=== PATIENT | male | born 1945 | race Caucasian/White ===

== ENCOUNTER 2018-09-29 09:38 | Inpatient (IN) | payer OTHER ==
[2018-09-29 11:03] VITALS: BMI 25.0
--- NOTE | 2018-09-29 12:05 | HP ---
CIWA Score Nausea/Vomitin-Mild Nausea/No Vomiting Muscle Tremors: 3 Anxiety: 2 Agitation: 1-Slight > Activity Paroxysmal Sweats: 2 Orientation: 0-Oriented Tacttile Disturbances: 0-None Auditory Disturbances: 2-Mild Harshness/Frighten Visual Disturbances: 1-Very Mild Sensitivity Headache: 1-Very Mild CIWA-Ar Total Score: 13 - Admission Criteria OASAS Guidelines: Admission for Medically Managed Detox: Requires at least one of the followin. CIWA greater than 12 2. Seizures within the past 24 hours 3. Delirium tremens within the past 24 hours 4. Hallucinations within the past 24 hours 5. Acute intervention needed for co occurring medical disorder 6. Acute intervention needed for co occurring psychiatric disorder 7. Severe withdrawal that cannot be handled at a lower level of care (continued vomiting, continued diarrhea, abnormal vital signs) requiring intravenous medication and/or fluids 8. Patient presents the following: CIWA greater than 12 Admission Criteria Met: Admission criteria met Admission ROS BHS - HPI Chief Complaint: HE DECIDED AT 73 HES GOING TO STOP EVERYTHING Allergies/Adverse Reactions: Allergies Allergy/AdvReac Type Severity Reaction Status Date / Time No Known Allergies Allergy Verified 09/29/18 09:51 History of Present Illness: AGE 22 BEGAN USING SUBSTANCES IN 1968 STARTED USING WHEN HE WAS SELLING DRUGS ONLY SIGNIFICANT PERIODS OF ABSTINENCXE WERE INCARCERATION-LAST 2011 ON MMTP SINCE 1990, NOT HEROIN ABSTINENET TURNED 73 YESTERDAY AND HAS DECIDED HE WANTS A CHANGE - Ebola screening Have you traveled outside of the country in the last 21 days: No Have you had contact with anyone from an Ebola affected area: No Do you have a fever: No - Review of Systems Constitutional: Changes in sleep, Unintentional Wgt. Loss EENT: reports: Dental Problems Respiratory: reports: No Symptoms reported Cardiac: reports: No Symptoms Reported GI: reports: Other : reports: No Symptoms Reported Musculoskeletal: reports: Joint Pain, Muscle Weakness Integumentary: reports: No Symptoms Reported Neuro: reports: Tremors Endocrine: reports: No Symptoms Reported Hematology: reports: No Symptoms Reported Psychiatric: reports: Anxious Patient History - Patient Medical History Hx Anemia: No Hx Asthma: No Hx Chronic Obstructive Pulmonary Disease (COPD): No Hx Cancer: No Hx Cardiac Disorders: No Hx Congestive Heart Failure: No Hx Hypertension: Yes Hx Hypercholesterolemia: Yes Hx Pacemaker: No HX Cerebrovascular Accident: No Hx Seizures: No Hx Dementia: No Hx Diabetes: Yes Hx Gastrointestinal Disorders: No Hx Liver Disease: No Hx Genitourinary Disorders: No Hx Sexually Transmitted Disorders: No Hx Renal Disease (ESRD): No Hx Thyroid Disease: No Hx Human Immunodeficiency Virus (HIV): No Hx Hepatitis C: No Hx Depression: No Hx Suicide Attempt: No Hx Bipolar Disorder: No Hx Schizophrenia: No - Patient Surgical History Hx Orthopedic Surgery: Yes (KNEES, FINGER AMPUTATION) - PPD History Previous Implant?: Yes Documented Results: Positive w/o proof Implanted On Prior [facility] Admission?: No - Smoking Cessation Smoking history: Current every day smoker Aproximately how many cigarettes per day: 10 Initiated information on smoking cessation: Yes 'Breaking Loose' booklet given: 09/29/18 - Substance & Tx. History Hx Alcohol Use: Yes Hx Substance Use: Yes Substance Use Type: Alcohol, Cocaine, Heroin - Substances abused Alcohol Substance route: Oral Frequency: Daily Amount used: 6- 10 beers daily/2-3 shots of rum Age of first use: 16 Date of last use: 09/28/18 Heroin Substance route: Inhalation Frequency: Daily Amount used: 4-5 bags Age of first use: 22 Date of last use: 09/28/18 Cocaine Substance route: Inhalation Frequency: Daily Amount used: $20-30 Age of first use: 22 Date of last use: 09/28/18 Family Disease History - Family Disease History Family Disease History: Other: Father (ETOH) Admission Physical Exam BHS - Vital Signs Vital Signs: Vital Signs - 24 hr 09/29/18 09:49 Temperature 97.4 F L Pulse Rate 54 L Respiratory 18 Rate Blood Pressure 131/72 - Physical General Appearance: Yes: No Apparent Distress, Anxious HEENTM: Yes: EOMI Respiratory: Yes: Within Normal Limits, Lungs Clear Neck: Yes: Within Normal Limits Breast: Yes: Breast Exam Deferred Cardiology: Yes: Regular Rhythm, Regular Rate, S1, S2 Abdominal: Yes: Normal Bowel Sounds, Non Tender Genitourinary: Yes: Within Normal Limits Back: Yes: Normal Inspection Musculoskeletal: Yes: full range of Motion, Gait Steady, Joint Stiffness Extremities: Yes: Other (SCAR RIGHT KNEE) 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, Motor Strength 5/5, Normal Mood/Affect Integumentary: Yes: Within Normal Limits, Normal Color Lymphatic: Yes: Within Normal Limits - Diagnostic (1) Opiate dependence Current Visit: Yes Status: Acute (2) Encounter for long-term methadone use for opiate dependence Current Visit: Yes Status: Acute (3) Alcohol dependence Current Visit: Yes Status: Acute (4) Cocaine abuse Current Visit: Yes Status: Acute (5) Hyperlipidemia Current Visit: Yes Status: Acute (6) Diabetes Current Visit: Yes Status: Acute (7) Hypertension Current Visit: Yes Status: Acute Cleared for Admission S - Detox or Rehab [facility] Level of Care: Medically Supervised Breathalyzer - Breathalyzer Breathalyzer: 0 Urine Drug Screen - Test Device Lot number: [id number] Expiration date: 06/15/19 - Control Is test valid?: Yes - Results Drug screen NEGATIVE: No Urine drug screen results: THC-Marijuana, SORAYA-Cocaine, MOP-Opiates, MTD- Methadone Inpatient Rehab Admission - Rehab Decision to Admit Inpatient rehab admission?: No
[2018-09-29] MEDS ORDERED: MENTHOL/PHENOL 1 EACH UD MM PRN (12:14)
[2018-09-29] MEDS ORDERED: hydrOXYzine PAMOATE 25 MG CAPSULE (FP) PO PRN (12:14)
[2018-09-29] MEDS ORDERED: MELATONIN 5 MG TABLETS PO PRN (12:14)
[2018-09-29] MEDS ORDERED: IBUPROFEN 400 MG TABLET (FP) PO PRN (12:14)
[2018-09-29] MEDS ORDERED: BISMUTH SUBSALICYLATE 262 MG/15 ML BTL PO PRN (12:14)
[2018-09-29] MEDS ORDERED: MAG HYDROX/AL HYDROX/SIMETH 30 ML UNIT-DOSE CUP PO PRN (12:14)
[2018-09-29] MEDS ORDERED: ACETAMINOPHEN 325 MG TABLET (FP) PO PRN ×2 (12:14)
[2018-09-29] MEDS ORDERED: chlordiazePOXIDE HCL 25 MG CAPSULE PO PRN (12:14)
[2018-09-29] MEDS ORDERED: MAGNESIUM CITRATE 300 ML BOTTLE PO PRN (12:14)
[2018-09-29] MEDS ORDERED: METHOCARBAMOL 500 MG TABLET PO PRN (12:14)
[2018-09-29] MEDS ORDERED: MAGNESIUM HYDROX 2400MG/30ML ORAL SUSPENSION 30 ML CUP PO PRN (12:14)
[2018-09-29] MEDS ORDERED: METHADONE HCL 10 MG TABLET PO SCH (13:00)
[2018-09-29] MEDS ORDERED: METHADONE HCL 10 MG TABLET ONE (13:47)
[2018-09-29] MEDS ORDERED: METHADONE HCL 40 MG DISPERSABLE TABLET ONE (13:47)
[2018-09-29] MEDS: ASPIRIN 81 MG CHEWABLE TABLETS PO SCH (13:51)
[2018-09-29] MEDS: amLODIPine BESYLATE 10 MG TABLET (FP) PO SCH (13:51)
[2018-09-29] MEDS: GABAPENTIN 300 MG CAPSULE (FP) PO SCH ×2 (13:51→22:19)
[2018-09-29] MEDS ORDERED: METHADONE 40 MG, METHADONE 30 MG PO ONE (14:00)
[2018-09-29] MEDS: chlordiazePOXIDE HCL 25 MG CAPSULE PO SCH ×2 (18:48→22:18)
[2018-09-29] MEDS: THIAMINE HCL 100 MG TABLET (FP) PO SCH (22:18)
[2018-09-30] MEDS ORDERED: METHADONE HCL 10 MG TABLET ONE (04:55)
[2018-09-30] MEDS ORDERED: METHADONE HCL 40 MG DISPERSABLE TABLET ONE (04:56)
[2018-09-30] MEDS: METHADONE 40 MG, METHADONE 30 MG PO SCH (07:01)
[2018-09-30] MEDS: chlordiazePOXIDE HCL 25 MG CAPSULE PO SCH ×4 (07:02→22:38)
[2018-09-30] MEDS: GABAPENTIN 300 MG CAPSULE (FP) PO SCH ×3 (07:02→22:38)
--- NOTE | 2018-09-30 09:25 | PN ---
S CIWA - CIWA Score Nausea/Vomitin-Int. Nausea w/Dry Heave Muscle Tremors: 1-None Visible, but [place] Anxiety: 1-Mildly Anxious Agitation: 1-Slight > Activity Paroxysmal Sweats: No Perspiration Orientation: 0-Oriented Tacttile Disturbances: 0-None Auditory Disturbances: 0-None Visual Disturbances: 0-None Headache: 1-Very Mild CIWA-Ar Total Score: 8 BHS Progress Note (SOAP) Subjective: Patient seen in bed and relatively comfortable though he still has some tremors and some withdrawal symptoms. Objective: 09/30/18 09:21 Laboratory 09/29/18 09/29/18 09/30/18 12:55 16:32 06:05 POC Glucometer 207 UNITS UNITS 158 UNITS UNITS 134 UNITS UNITS (80-120) (80-120) (80-120) 09/30/18 09:22 Vitals: BP: 132/71 P:65 R: 18 T:97.9F Labs still pending. 09/30/18 09:23 Assessment: 09/30/18 09:24 1. Alcohol Dependence: Plan: 1. Continue detox protocol. Dr. Islas
[2018-09-30 10:53] LABS: ALBUMIN 3.4 g/dl (3.4-5.0); BILIRUBIN,TOTAL 0.4 mg/dL (0.2-1); BLOOD UREA NITROGEN 14.9 mg/dL (7-18); CALCIUM 8.8 mg/dL (8.5-10.1); CREATININE 1.2 mg/dL (0.55-1.3); POTASSIUM 4.5 mmol/L (3.5-5.1); TOT PROT 7.1 g/dl (6.4-8.2)
[2018-09-30 10:55] LABS: HEMATOCRIT 39.3 % (35.4-49); HEMOGLOBIN 13.3 GM/dL (11.7-16.9); MCH 30.5 pg (25.7-33.7); MCHC 33.9 g/dl (32.0-35.9); MEAN PLT VOLUME 9.2 fl (7.5-11.1); PLATELET COUNT 210 K/MM3 (134-434); RBC 4.37 M/mm3 (4.00-5.60); RDW 14.5 % (11.9-15.9); WHITE BLOOD COUNT 6.5 K/mm3 (4.0-10.0)
[2018-09-30] MEDS: PRENATAL VITAMINS W/ FOLIC ACID TABLET (FP) PO SCH (11:05)
[2018-09-30] MEDS: amLODIPine BESYLATE 10 MG TABLET (FP) PO SCH (11:05)
[2018-09-30] MEDS: ASPIRIN 81 MG CHEWABLE TABLETS PO SCH (11:09)
--- NOTE | 2018-09-30 11:30 | EKG ---
Test Reason : Blood Pressure : / mmHG Vent. Rate : 047 BPM Atrial Rate : 047 BPM P-R Int : 182 ms QRS Dur : 092 ms QT Int : 532 ms P-R-T Axes : 063 -12 036 degrees QTc Int : 470 ms SINUS BRADYCARDIA INCOMPLETE RBBB NO PREVIOUS ECGS AVAILABLE Confirmed by LILIA FLOR MD ([id number]) on 09/30/2018 11:30:10 AM Referred By: Confirmed By:LILIA FLOR MD
[2018-09-30] MEDS: THIAMINE HCL 100 MG TABLET (FP) PO SCH (22:38)
[2018-10-01] MEDS ORDERED: METHADONE HCL 40 MG DISPERSABLE TABLET ONE (05:03)
[2018-10-01] MEDS ORDERED: METHADONE HCL 10 MG TABLET ONE (05:03)
[2018-10-01] MEDS: chlordiazePOXIDE HCL 25 MG CAPSULE PO SCH ×4 (05:41→22:32)
[2018-10-01] MEDS: METHADONE 40 MG, METHADONE 30 MG PO SCH (05:41)
[2018-10-01] MEDS: GABAPENTIN 300 MG CAPSULE (FP) PO SCH ×3 (05:42→22:32)
[2018-10-01] MEDS: ASPIRIN 81 MG CHEWABLE TABLETS PO SCH (10:51)
[2018-10-01] MEDS: PRENATAL VITAMINS W/ FOLIC ACID TABLET (FP) PO SCH (10:51)
[2018-10-01] MEDS: amLODIPine BESYLATE 10 MG TABLET (FP) PO SCH (10:52)
--- NOTE | 2018-10-01 10:54 | PN ---
S CIWA - CIWA Score Nausea/Vomitin-No Nausea/No Vomiting Muscle Tremors: None Anxiety: 3 Agitation: 0-Normal Activity Paroxysmal Sweats: 3 Orientation: 0-Oriented Tacttile Disturbances: 0-None Auditory Disturbances: 0-None Visual Disturbances: 0-None Headache: 2-Mild CIWA-Ar Total Score: 8 BHS Progress Note (SOAP) Subjective: c/o b/l knee pain, sweats, anxiety, and headache. Objective: 10/01/18 10:52 Vital Signs 10/01/18 10/01/18 10/01/18 03:30 06:41 09:29 Temperature 96.6 F L 98.0 F Pulse Rate 54 L 54 L Respiratory 18 18 16 Rate Blood Pressure 133/68 131/76 Lab Results WBC 6.5 K/mm3 (4.0-10.0) 09/30/18 06:00 RBC 4.37 M/mm3 (4.00-5.60) 09/30/18 06:00 Hgb 13.3 GM/dL (11.7-16.9) 09/30/18 06:00 Hct 39.3 % (35.4-49) 09/30/18 06:00 MCV 90.0 fl (80-96) 09/30/18 06:00 MCHC 33.9 g/dl (32.0-35.9) 09/30/18 06:00 RDW 14.5 % (11.9-15.9) 09/30/18 06:00 Plt Count 210 K/MM3 (134-434) 09/30/18 06:00 Sodium 138 mmol/L (136-145) 09/30/18 06:00 Potassium 4.5 mmol/L (3.5-5.1) 09/30/18 06:00 Chloride 102 mmol/L (98-107) 09/30/18 06:00 Carbon Dioxide 32 mmol/L (21-32) 09/30/18 06:00 Anion Gap 4 MMOL/L (8-16) L 09/30/18 06:00 BUN 14.9 mg/dL (7-18) 09/30/18 06:00 Creatinine 1.2 mg/dL (0.55-1.3) 09/30/18 06:00 Random Glucose 183 mg/dL (74-106) H 09/30/18 06:00 Calcium 8.8 mg/dL (8.5-10.1) 09/30/18 06:00 Labs noted. Assessment: 10/01/18 10:52 AOX3, in no acute distress. Full ROM, ambulating in the unit. Withdrawal symptoms. Plan: continue detox.
[2018-10-01] MEDS: THIAMINE HCL 100 MG TABLET (FP) PO SCH (22:32)
[2018-10-02] MEDS ORDERED: chlordiazePOXIDE HCL 10 MG CAPSULE PO PRN
[2018-10-02] MEDS ORDERED: METHADONE HCL 10 MG TABLET ONE (05:16)
[2018-10-02] MEDS ORDERED: METHADONE HCL 40 MG DISPERSABLE TABLET ONE (05:16)
[2018-10-02] MEDS: METHADONE 40 MG, METHADONE 30 MG PO SCH (07:01)
[2018-10-02] MEDS: chlordiazePOXIDE HCL 10 MG CAPSULE PO SCH ×4 (07:02→22:32)
[2018-10-02] MEDS: GABAPENTIN 300 MG CAPSULE (FP) PO SCH ×3 (07:03→22:32)
[2018-10-02] MEDS: ASPIRIN 81 MG CHEWABLE TABLETS PO SCH (10:54)
[2018-10-02] MEDS: PRENATAL VITAMINS W/ FOLIC ACID TABLET (FP) PO SCH (10:54)
[2018-10-02] MEDS: amLODIPine BESYLATE 10 MG TABLET (FP) PO SCH (10:54)
[2018-10-02] MEDS ORDERED: LIDOCAINE 5% TOPICAL PATCH TP ONE (12:21)
--- NOTE | 2018-10-02 12:24 | PN ---
S CIWA - CIWA Score Nausea/Vomitin-No Nausea/No Vomiting Muscle Tremors: 2 Anxiety: 2 Agitation: 2 Paroxysmal Sweats: 2 Orientation: 0-Oriented Tacttile Disturbances: 0-None Auditory Disturbances: 0-None Visual Disturbances: 0-None Headache: 0-None Present CIWA-Ar Total Score: 8 BHS Progress Note (SOAP) Subjective: tired sleepy knee pain Objective: 10/02/18 12:23 Vital Signs Temperature 98.2 F 10/02/18 09:42 Pulse Rate 70 10/02/18 09:42 Respiratory Rate 18 10/02/18 09:42 Blood Pressure 129/64 10/02/18 09:42 O2 Sat by Pulse Oximetry (%) Laboratory Tests 09/29/18 09/29/18 09/30/18 12:55 16:32 06:00 WBC 6.5 RBC 4.37 Hgb 13.3 Hct 39.3 MCV 90.0 MCH 30.5 MCHC 33.9 RDW 14.5 Plt Count 210 MPV 9.2 Sodium Potassium Chloride Carbon Dioxide Anion Gap BUN Creatinine Est GFR (CKD-EPI)AfAm Est GFR (CKD-EPI)NonAf POC Glucometer 207 158 Random Glucose Calcium Total Bilirubin AST ALT Alkaline Phosphatase Total Protein Albumin RPR Titer 09/30/18 09/30/18 09/30/18 06:00 06:00 06:05 WBC RBC Hgb Hct MCV MCH MCHC RDW Plt Count MPV Sodium 138 Potassium 4.5 Chloride 102 Carbon Dioxide 32 Anion Gap 4 L BUN 14.9 Creatinine 1.2 Est GFR (CKD-EPI)AfAm 68.15 Est GFR (CKD-EPI)NonAf 58.80 POC Glucometer 134 Random Glucose 183 H Calcium 8.8 Total Bilirubin 0.4 AST 20 ALT 18 Alkaline Phosphatase 118 H Total Protein 7.1 Albumin 3.4 RPR Titer Nonreactive 09/30/18 10/01/18 10/01/18 17:00 05:47 16:45 WBC RBC Hgb Hct MCV MCH MCHC RDW Plt Count MPV Sodium Potassium Chloride Carbon Dioxide Anion Gap BUN Creatinine Est GFR (CKD-EPI)AfAm Est GFR (CKD-EPI)NonAf POC Glucometer 192 174 237 Random Glucose Calcium Total Bilirubin AST ALT Alkaline Phosphatase Total Protein Albumin RPR Titer 10/02/18 07:00 WBC RBC Hgb Hct MCV MCH MCHC RDW Plt Count MPV Sodium Potassium Chloride Carbon Dioxide Anion Gap BUN Creatinine Est GFR (CKD-EPI)AfAm Est GFR (CKD-EPI)NonAf POC Glucometer 299 Random Glucose Calcium Total Bilirubin AST ALT Alkaline Phosphatase Total Protein Albumin RPR Titer labs noted aaox3 lying down no acute distress Assessment: 10/02/18 12:24 withdrawal sx Plan: continue detox increase fluids lidocaine patch ordered
--- NOTE | 2018-10-02 19:21 | PN ---
S Progress Note Note: bgm is 326,will change diet to slick,ncs,bgm monitoring achs with novolog sliding scale,d/c ensure,glucerna 1 can po bid, close monitoring
[2018-10-02] MEDS: THIAMINE HCL 100 MG TABLET (FP) PO SCH (22:26)
[2018-10-02] MEDS: LIDOCAINE PATCH REMOVAL MC SCH (22:37)
[2018-10-02] MEDS: INSULIN SLIDING SCALE (NOVOLOG) 1 VIAL SQ SCH ×2 (22:38→23:30)
[2018-10-03] MEDS ORDERED: METHADONE HCL 40 MG DISPERSABLE TABLET ONE (04:18)
[2018-10-03] MEDS ORDERED: METHADONE HCL 10 MG TABLET ONE (04:18)
[2018-10-03] MEDS: METHADONE 40 MG, METHADONE 30 MG PO SCH (06:06)
[2018-10-03] MEDS: chlordiazePOXIDE HCL 10 MG CAPSULE PO SCH ×2 (06:07→18:32)
[2018-10-03] MEDS: GABAPENTIN 300 MG CAPSULE (FP) PO SCH ×3 (06:07→22:41)
[2018-10-03] MEDS: INSULIN SLIDING SCALE (NOVOLOG) 1 VIAL SQ SCH ×4 (08:03→22:41)
[2018-10-03] MEDS: ASPIRIN 81 MG CHEWABLE TABLETS PO SCH (11:03)
[2018-10-03] MEDS: PRENATAL VITAMINS W/ FOLIC ACID TABLET (FP) PO SCH (11:03)
[2018-10-03] MEDS: amLODIPine BESYLATE 10 MG TABLET (FP) PO SCH (11:03)
[2018-10-03] MEDS: LIDOCAINE 5% TOPICAL PATCH TP SCH (11:05)
[2018-10-03] MEDS ORDERED: INSULIN SLIDING SCALE (NOVOLOG) 1 VIAL SQ ONE (11:42)
--- NOTE | 2018-10-03 16:11 | PN ---
S CIWA - CIWA Score Nausea/Vomitin-No Nausea/No Vomiting Muscle Tremors: None Anxiety: 3 Agitation: 2 Paroxysmal Sweats: No Perspiration Orientation: 2-Disoriented Date<2 days Tacttile Disturbances: 0-None Auditory Disturbances: 0-None Visual Disturbances: 0-None Headache: 0-None Present CIWA-Ar Total Score: 7 BHS Progress Note (SOAP) Subjective: Anxious. Objective: PATIENT A & O X 2 (UNCERTAIN ABOUT CURRENT DAY / DATE). PATIENT OBSERVED MOVING ABOUT DETOX UNIT IN A WHEELCHAIR. IN NO ACUTE DISTRESS. 10/03/18 16:07 Vital Signs Temperature 97.7 F 10/03/18 13:13 Pulse Rate 77 10/03/18 13:13 Respiratory Rate 16 10/03/18 13:13 Blood Pressure 132/66 10/03/18 13:13 O2 Sat by Pulse Oximetry (%) Laboratory Tests 09/29/18 09/29/18 09/29/18 12:55 13:00 16:32 WBC RBC Hgb Hct MCV MCH MCHC RDW Plt Count MPV Sodium Potassium Chloride Carbon Dioxide Anion Gap BUN Creatinine Est GFR (CKD-EPI)AfAm Est GFR (CKD-EPI)NonAf POC Glucometer 207 158 Random Glucose Calcium Total Bilirubin AST ALT Alkaline Phosphatase Total Protein Albumin RPR Titer TB (QFT) Incubation TB Test (QFT) Nil 2.05 TB Test (QFT) Mitogen >10.00 TB Test (QFT) Antigen >10.00 TB Test (QFT) Positive H TB Positive Criteria 09/30/18 09/30/18 09/30/18 06:00 06:00 06:00 WBC 6.5 RBC 4.37 Hgb 13.3 Hct 39.3 MCV 90.0 MCH 30.5 MCHC 33.9 RDW 14.5 Plt Count 210 MPV 9.2 Sodium 138 Potassium 4.5 Chloride 102 Carbon Dioxide 32 Anion Gap 4 L BUN 14.9 Creatinine 1.2 Est GFR (CKD-EPI)AfAm 68.15 Est GFR (CKD-EPI)NonAf 58.80 POC Glucometer Random Glucose 183 H Calcium 8.8 Total Bilirubin 0.4 AST 20 ALT 18 Alkaline Phosphatase 118 H Total Protein 7.1 Albumin 3.4 RPR Titer Nonreactive TB (QFT) Incubation TB Test (QFT) Nil TB Test (QFT) Mitogen TB Test (QFT) Antigen TB Test (QFT) TB Positive Criteria 09/30/18 09/30/18 10/01/18 06:05 17:00 05:47 WBC RBC Hgb Hct MCV MCH MCHC RDW Plt Count MPV Sodium Potassium Chloride Carbon Dioxide Anion Gap BUN Creatinine Est GFR (CKD-EPI)AfAm Est GFR (CKD-EPI)NonAf POC Glucometer 134 192 174 Random Glucose Calcium Total Bilirubin AST ALT Alkaline Phosphatase Total Protein Albumin RPR Titer TB (QFT) Incubation TB Test (QFT) Nil TB Test (QFT) Mitogen TB Test (QFT) Antigen TB Test (QFT) TB Positive Criteria 10/01/18 10/02/18 10/02/18 16:45 07:00 16:39 WBC RBC Hgb Hct MCV MCH MCHC RDW Plt Count MPV Sodium Potassium Chloride Carbon Dioxide Anion Gap BUN Creatinine Est GFR (CKD-EPI)AfAm Est GFR (CKD-EPI)NonAf POC Glucometer 237 299 326 Random Glucose Calcium Total Bilirubin AST ALT Alkaline Phosphatase Total Protein Albumin RPR Titer TB (QFT) Incubation TB Test (QFT) Nil TB Test (QFT) Mitogen TB Test (QFT) Antigen TB Test (QFT) TB Positive Criteria 10/02/18 10/03/18 10/03/18 22:29 06:04 11:35 WBC RBC Hgb Hct MCV MCH MCHC RDW Plt Count MPV Sodium Potassium Chloride Carbon Dioxide Anion Gap BUN Creatinine Est GFR (CKD-EPI)AfAm Est GFR (CKD-EPI)NonAf POC Glucometer 481 162 239 Random Glucose Calcium Total Bilirubin AST ALT Alkaline Phosphatase Total Protein Albumin RPR Titer TB (QFT) Incubation TB Test (QFT) Nil TB Test (QFT) Mitogen TB Test (QFT) Antigen TB Test (QFT) TB Positive Criteria LABS NOTED. RESULT OF ADMISSION TB / QFT TEST NOTED TO BE POSITIVE. SUBSEQUENT CXR DONE. RESULT: 'NO ACUTE CHEST PATHOLOGY NOTED.' 10/03/18 16:09 Assessment: 10/03/18 16:10 WITHDRAWAL SYMPTOMS. POSITIVE TB / QFT TEST RESULT. Plan: CONTINUE DETOX. PATIENT SCHEDULED FOR D/C FROM DETOX UNIT TOMORROW.
[2018-10-03] MEDS: THIAMINE HCL 100 MG TABLET (FP) PO SCH (22:41)
[2018-10-03] MEDS: LIDOCAINE PATCH REMOVAL MC SCH (22:41)
[2018-10-04] MEDS ORDERED: chlordiazePOXIDE HCL 10 MG CAPSULE PO ONE (05:00)
[2018-10-04] MEDS ORDERED: METHADONE HCL 10 MG TABLET ONE (05:23)
[2018-10-04] MEDS ORDERED: METHADONE HCL 40 MG DISPERSABLE TABLET ONE (05:23)
[2018-10-04] MEDS: METHADONE 40 MG, METHADONE 30 MG PO SCH (07:48)
[2018-10-04] MEDS: GABAPENTIN 300 MG CAPSULE (FP) PO SCH (07:49)
[2018-10-04] MEDS: INSULIN SLIDING SCALE (NOVOLOG) 1 VIAL SQ SCH ×2 (07:49→11:56)
--- NOTE | 2018-10-04 09:02 | DS ---
[facility] Detox Discharge Summary Admission Date: 09/29/18 Discharge Date: 10/04/18 - History Present History: Alcohol Dependence, Cocaine Dependence, MMTP - Physical Exam Results Vital Signs: Vital Signs Temperature 99.3 F 10/04/18 06:00 Pulse Rate 69 10/04/18 06:00 Respiratory Rate 18 10/04/18 06:00 Blood Pressure 136/71 10/04/18 06:00 O2 Sat by Pulse Oximetry (%) Pertinent Admission Physical Exam Findings: pt arrived in withdrawals Laboratory Tests 09/29/18 09/29/18 09/29/18 12:55 13:00 16:32 WBC RBC Hgb Hct MCV MCH MCHC RDW Plt Count MPV Sodium Potassium Chloride Carbon Dioxide Anion Gap BUN Creatinine Est GFR (CKD-EPI)AfAm Est GFR (CKD-EPI)NonAf POC Glucometer 207 158 Random Glucose Calcium Total Bilirubin AST ALT Alkaline Phosphatase Total Protein Albumin RPR Titer TB (QFT) Incubation TB Test (QFT) Nil 2.05 TB Test (QFT) Mitogen >10.00 TB Test (QFT) Antigen >10.00 TB Test (QFT) Positive H TB Positive Criteria 09/30/18 09/30/18 09/30/18 06:00 06:00 06:00 WBC 6.5 RBC 4.37 Hgb 13.3 Hct 39.3 MCV 90.0 MCH 30.5 MCHC 33.9 RDW 14.5 Plt Count 210 MPV 9.2 Sodium 138 Potassium 4.5 Chloride 102 Carbon Dioxide 32 Anion Gap 4 L BUN 14.9 Creatinine 1.2 Est GFR (CKD-EPI)AfAm 68.15 Est GFR (CKD-EPI)NonAf 58.80 POC Glucometer Random Glucose 183 H Calcium 8.8 Total Bilirubin 0.4 AST 20 ALT 18 Alkaline Phosphatase 118 H Total Protein 7.1 Albumin 3.4 RPR Titer Nonreactive TB (QFT) Incubation TB Test (QFT) Nil TB Test (QFT) Mitogen TB Test (QFT) Antigen TB Test (QFT) TB Positive Criteria 09/30/18 09/30/18 10/01/18 06:05 17:00 05:47 WBC RBC Hgb Hct MCV MCH MCHC RDW Plt Count MPV Sodium Potassium Chloride Carbon Dioxide Anion Gap BUN Creatinine Est GFR (CKD-EPI)AfAm Est GFR (CKD-EPI)NonAf POC Glucometer 134 192 174 Random Glucose Calcium Total Bilirubin AST ALT Alkaline Phosphatase Total Protein Albumin RPR Titer TB (QFT) Incubation TB Test (QFT) Nil TB Test (QFT) Mitogen TB Test (QFT) Antigen TB Test (QFT) TB Positive Criteria 10/01/18 10/02/18 10/02/18 16:45 07:00 16:39 WBC RBC Hgb Hct MCV MCH MCHC RDW Plt Count MPV Sodium Potassium Chloride Carbon Dioxide Anion Gap BUN Creatinine Est GFR (CKD-EPI)AfAm Est GFR (CKD-EPI)NonAf POC Glucometer 237 299 326 Random Glucose Calcium Total Bilirubin AST ALT Alkaline Phosphatase Total Protein Albumin RPR Titer TB (QFT) Incubation TB Test (QFT) Nil TB Test (QFT) Mitogen TB Test (QFT) Antigen TB Test (QFT) TB Positive Criteria 10/02/18 10/03/18 10/03/18 22:29 06:04 11:35 WBC RBC Hgb Hct MCV MCH MCHC RDW Plt Count MPV Sodium Potassium Chloride Carbon Dioxide Anion Gap BUN Creatinine Est GFR (CKD-EPI)AfAm Est GFR (CKD-EPI)NonAf POC Glucometer 481 162 239 Random Glucose Calcium Total Bilirubin AST ALT Alkaline Phosphatase Total Protein Albumin RPR Titer TB (QFT) Incubation TB Test (QFT) Nil TB Test (QFT) Mitogen TB Test (QFT) Antigen TB Test (QFT) TB Positive Criteria 10/03/18 10/03/18 10/04/18 16:39 22:38 07:43 WBC RBC Hgb Hct MCV MCH MCHC RDW Plt Count MPV Sodium Potassium Chloride Carbon Dioxide Anion Gap BUN Creatinine Est GFR (CKD-EPI)AfAm Est GFR (CKD-EPI)NonAf POC Glucometer 147 220 162 Random Glucose Calcium Total Bilirubin AST ALT Alkaline Phosphatase Total Protein Albumin RPR Titer TB (QFT) Incubation TB Test (QFT) Nil TB Test (QFT) Mitogen TB Test (QFT) Antigen TB Test (QFT) TB Positive Criteria today pt is aaox3 ambulating with cane/wheelchair no withdrawals noted - Treatment Hospital Course: Detox Protocol Followed, Detoxed Safely, Responded well, Discharged Condition Good, Rehab Referral Accepted Patient has Accepted a Rehab Referral to: pr referred to [facility] - Medication Discharge Medications: Ambulatory Orders Amlodipine Besylate [Norvasc -] 10 mg PO DAILY 09/29/18 Aspirin 1 mg PO DAILY 09/29/18 Gabapentin [Neurontin -] 300 mg PO Q8H 09/29/18 Simvastatin [Zocor -] 20 mg PO HS 09/29/18 Sitagliptin Phosphate [Januvia] 25 mg PO DAILY 09/29/18 - Diagnosis (1) Alcohol dependence Current Visit: Yes Status: Chronic Qualifiers: Substance use status: uncomplicated Qualified Code(s): F10.20 - Alcohol dependence, uncomplicated (2) Cocaine abuse Current Visit: Yes Status: Chronic (3) Diabetes Current Visit: Yes Status: Chronic Qualifiers: Diabetes mellitus type: type 2 Diabetes mellitus intermediate insulin use: unspecified intermediate insulin use status Diabetes mellitus complication status : without complication Qualified Code(s): E11.9 - Type 2 diabetes mellitus without complications (4) Encounter for long-term methadone use for opiate dependence Current Visit: Yes Status: Acute (5) Hyperlipidemia Current Visit: Yes Status: Acute (6) Hypertension Current Visit: Yes Status: Chronic (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
[2018-10-04 09:29] VITALS: BP 154/80; PULSE 82; TEMP 97.6
[2018-10-04] MEDS: PRENATAL VITAMINS W/ FOLIC ACID TABLET (FP) PO SCH (10:22)
[2018-10-04] MEDS: amLODIPine BESYLATE 10 MG TABLET (FP) PO SCH (10:22)
[2018-10-04] MEDS: LIDOCAINE 5% TOPICAL PATCH TP SCH (10:22)
[2018-10-04] MEDS ORDERED: ASPIRIN 81 MG CHEWABLE TABLETS PO SCH (12:15)
[2018-10-04] MEDS: ASPIRIN 81 MG CHEWABLE TABLETS PO SCH (12:45)
== END 2018-10-04 13:06 | disposition other institution (70) | DRG 897 ==
LOC: YASAS 09:38 → Y6N 12:51
PROVIDERS: ADMIT Surgery; ATTEND Surgery
PROC: HZ2ZZZZ Detoxification Services for Substance Abuse Treatment (ICD-10-PCS; principal; 2018-09-29)
DX: F10.230 Alcohol dependence with withdrawal, uncomplicated (principal); F11.20 Opioid dependence, uncomplicated; F14.10 Cocaine abuse, uncomplicated; F17.210 Nicotine dependence, cigarettes, uncomplicated; I10 Essential (primary) hypertension; E78.5 Hyperlipidemia, unspecified; E11.9 Type 2 diabetes mellitus without complications; R76.11 Nonspecific reaction to tuberculin skin test without active tuberculosis; Z79.4 Long term (current) use of insulin
CPT/HCPCS: 36415; 71046-TC-FY; 80053; 82962; 85027; 86480; 86593; 93005; 93010

== ENCOUNTER 2018-10-04 13:07 | Inpatient (IN) | payer OTHER ==
[2018-10-04] MEDS ORDERED: MAGNESIUM CITRATE 300 ML BOTTLE PO PRN (15:53)
[2018-10-04] MEDS ORDERED: guaiFENesin 200 MG/10 ML 10 ML UNIT-DOSE CUPS PO PRN (15:53)
[2018-10-04] MEDS ORDERED: P-EPHED 60MG/TRIPROLIDI 2.5MG TABLET PO PRN (15:53)
[2018-10-04] MEDS ORDERED: NICOTINE POLACRILEX 4 MG GUM BUC PRN (15:53)
[2018-10-04] MEDS ORDERED: ACETAMINOPHEN 325 MG TABLET (FP) PO PRN (15:53)
[2018-10-04] MEDS ORDERED: MENTHOL/PHENOL 1 EACH UD MM PRN (15:53)
[2018-10-04] MEDS ORDERED: MAGNESIUM HYDROX 2400MG/30ML ORAL SUSPENSION 30 ML CUP PO PRN (15:53)
[2018-10-04] MEDS ORDERED: IBUPROFEN 400 MG TABLET (FP) PO PRN (15:53)
--- NOTE | 2018-10-04 15:54 | HP ---
[facility] Rehab Assess/Revision - Admission History Admitted to Rehab from: [address] - Vital signs Vital Signs: Vital Signs Period Temp Pulse Resp BP Sys/Yao Pulse Ox Last 24 Hr 98.1 F 79 18 127/94 - Findings Detox History & Physical reviewed: Yes Concur with findings: Yes Inpatient Rehab Admission - Rehab Decision to Admit Inpatient rehab admission?: Yes - Initial Determination Are CD services needed?: Yes Free of communicable disease: Yes Not in need of hospitalization: Yes - Rehab Admission Criteria Previous failed treatment: Yes Poor recovery environment: Yes Comorbidities: Yes Lacks judgement: Yes Patient is meeting Inpatient Rehab admission criteria:: Yes
[2018-10-04] MEDS: INSULIN (NOVOLOG) ASPART 100 UNITS/ML 10ML VIAL SQ SCH (16:49)
[2018-10-04] MEDS: GABAPENTIN 300 MG CAPSULE (FP) PO SCH ×2 (16:51→21:44)
[2018-10-04] MEDS: ATORVASTATIN CA 20 MG TABLET (FP) PO SCH (21:44)
[2018-10-04] MEDS: MELATONIN 5 MG TABLETS PO PRN (21:44)
[2018-10-04] MEDS: THIAMINE HCL 100 MG TABLET (FP) PO SCH (21:44)
[2018-10-05] MEDS ORDERED: METHADONE HCL 10 MG TABLET ONE (04:19)
[2018-10-05] MEDS ORDERED: METHADONE HCL 40 MG DISPERSABLE TABLET ONE (04:20)
[2018-10-05] MEDS ORDERED: METHADONE HCL 40 MG DISPERSABLE TABLET PO SCH (06:00)
[2018-10-05] MEDS: METHADONE 40 MG, METHADONE 30 MG PO SCH (06:35)
[2018-10-05] MEDS: GABAPENTIN 300 MG CAPSULE (FP) PO SCH ×3 (06:35→21:41)
[2018-10-05] MEDS: INSULIN (NOVOLOG) ASPART 100 UNITS/ML 10ML VIAL SQ SCH ×3 (07:23→19:10)
[2018-10-05] MEDS ORDERED: SENNOSIDES 8.6MG TABLET (FP) PO SCH (10:00)
[2018-10-05] MEDS: PRENATAL VITAMINS W/ FOLIC ACID TABLET (FP) PO SCH (10:32)
[2018-10-05] MEDS: ASPIRIN 81 MG CHEWABLE TABLETS PO SCH (10:32)
[2018-10-05] MEDS: amLODIPine BESYLATE 10 MG TABLET (FP) PO SCH (10:32)
[2018-10-05] MEDS: LIDOCAINE 5% TOPICAL PATCH TP SCH (10:32)
[2018-10-05] MEDS: NICOTINE 21 MG/24 HOURS TOPICAL PATCH TD SCH (10:33)
[2018-10-05] MEDS: ATORVASTATIN CA 20 MG TABLET (FP) PO SCH (21:41)
[2018-10-05] MEDS: THIAMINE HCL 100 MG TABLET (FP) PO SCH (21:42)
[2018-10-05] MEDS: MELATONIN 5 MG TABLETS PO PRN (21:42)
[2018-10-05] MEDS: LOPERAMIDE HCL 2 MG CAPSULE PO PRN (21:43)
[2018-10-05] MEDS: LIDOCAINE PATCH REMOVAL MC SCH (22:41)
[2018-10-06] MEDS ORDERED: METHADONE HCL 10 MG TABLET ONE (04:15)
[2018-10-06] MEDS ORDERED: METHADONE HCL 40 MG DISPERSABLE TABLET ONE (04:16)
[2018-10-06] MEDS: METHADONE 40 MG, METHADONE 30 MG PO SCH (06:31)
[2018-10-06] MEDS: GABAPENTIN 300 MG CAPSULE (FP) PO SCH ×3 (06:31→21:38)
[2018-10-06] MEDS: INSULIN (NOVOLOG) ASPART 100 UNITS/ML 10ML VIAL SQ SCH ×3 (06:36→17:03)
[2018-10-06] MEDS: LOPERAMIDE HCL 2 MG CAPSULE PO PRN (06:42)
--- NOTE | 2018-10-06 08:45 | PN ---
S Progress Note Note: Vital Signs Temperature 98.2 F 10/06/18 06:45 Pulse Rate 74 10/06/18 06:45 Respiratory Rate 18 10/06/18 06:45 Blood Pressure 141/95 10/06/18 06:45 O2 Sat by Pulse Oximetry (%) Laboratory Last Values POC Glucometer 126 UNITS (80-120) 10/06/18 06:30 c/o of diarrhea d/t upset stomach bismuth prn ordered fluids as tolerated continue to monitor
[2018-10-06] MEDS: PRENATAL VITAMINS W/ FOLIC ACID TABLET (FP) PO SCH (15:07)
[2018-10-06] MEDS: ASPIRIN 81 MG CHEWABLE TABLETS PO SCH (15:07)
[2018-10-06] MEDS: amLODIPine BESYLATE 10 MG TABLET (FP) PO SCH (15:08)
[2018-10-06] MEDS: NICOTINE 21 MG/24 HOURS TOPICAL PATCH TD SCH (15:08)
[2018-10-06] MEDS: BISMUTH SUBSALICYLATE 262 MG/15 ML BTL PO SCH (15:10)
[2018-10-06] MEDS: LIDOCAINE 5% TOPICAL PATCH TP SCH (15:13)
[2018-10-06] MEDS: THIAMINE HCL 100 MG TABLET (FP) PO SCH (21:38)
[2018-10-06] MEDS: ATORVASTATIN CA 20 MG TABLET (FP) PO SCH (21:38)
[2018-10-06] MEDS: LIDOCAINE PATCH REMOVAL MC SCH (21:39)
[2018-10-07] MEDS ORDERED: METHADONE HCL 40 MG DISPERSABLE TABLET ONE (06:02)
[2018-10-07] MEDS ORDERED: METHADONE HCL 10 MG TABLET ONE (06:02)
[2018-10-07] MEDS: METHADONE 40 MG, METHADONE 30 MG PO SCH (06:37)
[2018-10-07] MEDS: GABAPENTIN 300 MG CAPSULE (FP) PO SCH ×3 (06:41→21:41)
[2018-10-07] MEDS: INSULIN (NOVOLOG) ASPART 100 UNITS/ML 10ML VIAL SQ SCH ×3 (06:43→16:44)
[2018-10-07] MEDS: ASPIRIN 81 MG CHEWABLE TABLETS PO SCH (10:44)
[2018-10-07] MEDS: NICOTINE 21 MG/24 HOURS TOPICAL PATCH TD SCH (10:45)
[2018-10-07] MEDS: PRENATAL VITAMINS W/ FOLIC ACID TABLET (FP) PO SCH (10:45)
[2018-10-07] MEDS: amLODIPine BESYLATE 10 MG TABLET (FP) PO SCH (10:45)
[2018-10-07] MEDS: LIDOCAINE 5% TOPICAL PATCH TP SCH (10:45)
[2018-10-07] MEDS: BISMUTH SUBSALICYLATE 262 MG/15 ML BTL PO SCH (10:46)
[2018-10-07] MEDS ORDERED: LOPERAMIDE HCL 2 MG CAPSULE PO PRN (13:45)
--- NOTE | 2018-10-07 13:45 | PN ---
S Progress Note Note: Pt states that he has been having diarrhea that he thinks is due to ensure- says he needs this to be stopped. Now c/o of an episode of vomiting. Would like to have pepto-bismol. Vital Signs - 24 hr 10/07/18 10/07/18 10/07/18 00:30 03:30 07:21 Temperature 98.3 F Pulse Rate 73 Respiratory 18 18 18 Rate Blood Pressure 130/76 10/07/18 10:00 Temperature Pulse Rate 79 Respiratory Rate Blood Pressure 128/72 Laboratory Tests 10/04/18 10/05/18 10/05/18 16:47 06:34 16:56 POC Glucometer 215 135 119 10/06/18 10/06/18 10/07/18 06:30 17:00 06:36 POC Glucometer 126 180 105 10/07/18 12:05 POC Glucometer 84 abd soft, mildly tender a/p: abd pain due to food reaction or milk in ensure> discontinued pepto-bismol prn for GI upset
[2018-10-07] MEDS ORDERED: BISMUTH SUBSALICYLATE 262 MG/15 ML BTL PO PRN (13:48)
[2018-10-07] MEDS: MAG HYDROX/AL HYDROX/SIMETH 30 ML UNIT-DOSE CUP PO PRN (16:52)
[2018-10-07] MEDS: ATORVASTATIN CA 20 MG TABLET (FP) PO SCH (21:41)
[2018-10-07] MEDS: THIAMINE HCL 100 MG TABLET (FP) PO SCH (21:41)
[2018-10-07] MEDS: LIDOCAINE PATCH REMOVAL MC SCH (23:10)
[2018-10-08] MEDS ORDERED: METHADONE HCL 10 MG TABLET ONE (05:53)
[2018-10-08] MEDS ORDERED: METHADONE HCL 40 MG DISPERSABLE TABLET ONE (05:54)
[2018-10-08] MEDS: METHADONE 40 MG, METHADONE 30 MG PO SCH (06:21)
[2018-10-08] MEDS: GABAPENTIN 300 MG CAPSULE (FP) PO SCH ×3 (06:21→22:43)
[2018-10-08] MEDS: INSULIN (NOVOLOG) ASPART 100 UNITS/ML 10ML VIAL SQ SCH ×3 (08:00→22:42)
[2018-10-08] MEDS: amLODIPine BESYLATE 10 MG TABLET (FP) PO SCH (09:38)
[2018-10-08] MEDS: LIDOCAINE 5% TOPICAL PATCH TP SCH (09:38)
[2018-10-08] MEDS: PRENATAL VITAMINS W/ FOLIC ACID TABLET (FP) PO SCH (09:38)
[2018-10-08] MEDS: ASPIRIN 81 MG CHEWABLE TABLETS PO SCH (09:38)
[2018-10-08] MEDS: NICOTINE 21 MG/24 HOURS TOPICAL PATCH TD SCH (09:38)
[2018-10-08] MEDS: MAG HYDROX/AL HYDROX/SIMETH 30 ML UNIT-DOSE CUP PO PRN (12:09)
[2018-10-08] MEDS: MELATONIN 5 MG TABLETS PO PRN (22:43)
[2018-10-08] MEDS: THIAMINE HCL 100 MG TABLET (FP) PO SCH (22:43)
[2018-10-08] MEDS: LIDOCAINE PATCH REMOVAL MC SCH (22:44)
[2018-10-08] MEDS: ATORVASTATIN CA 20 MG TABLET (FP) PO SCH (22:49)
[2018-10-09] MEDS ORDERED: METHADONE HCL 40 MG DISPERSABLE TABLET ONE (06:00)
[2018-10-09] MEDS ORDERED: METHADONE HCL 10 MG TABLET ONE (06:00)
[2018-10-09] MEDS: GABAPENTIN 300 MG CAPSULE (FP) PO SCH ×3 (06:20→21:31)
[2018-10-09] MEDS: METHADONE 40 MG, METHADONE 30 MG PO SCH (06:21)
[2018-10-09] MEDS: INSULIN (NOVOLOG) ASPART 100 UNITS/ML 10ML VIAL SQ SCH ×3 (06:21→16:40)
[2018-10-09] MEDS: ASPIRIN 81 MG CHEWABLE TABLETS PO SCH (10:05)
[2018-10-09] MEDS: NICOTINE 21 MG/24 HOURS TOPICAL PATCH TD SCH (10:05)
[2018-10-09] MEDS: PRENATAL VITAMINS W/ FOLIC ACID TABLET (FP) PO SCH (10:05)
[2018-10-09] MEDS: LIDOCAINE 5% TOPICAL PATCH TP SCH (10:06)
[2018-10-09] MEDS: amLODIPine BESYLATE 10 MG TABLET (FP) PO SCH (10:07)
[2018-10-09] MEDS: THIAMINE HCL 100 MG TABLET (FP) PO SCH (21:31)
[2018-10-09] MEDS: ATORVASTATIN CA 20 MG TABLET (FP) PO SCH (21:31)
[2018-10-09] MEDS: LIDOCAINE PATCH REMOVAL MC SCH (21:32)
[2018-10-10] MEDS ORDERED: METHADONE HCL 10 MG TABLET ONE (05:49)
[2018-10-10] MEDS ORDERED: METHADONE HCL 40 MG DISPERSABLE TABLET ONE (05:50)
[2018-10-10] MEDS: GABAPENTIN 300 MG CAPSULE (FP) PO SCH ×3 (06:03→21:26)
[2018-10-10] MEDS: METHADONE 40 MG, METHADONE 30 MG PO SCH (06:03)
[2018-10-10] MEDS: INSULIN (NOVOLOG) ASPART 100 UNITS/ML 10ML VIAL SQ SCH ×3 (06:06→16:50)
[2018-10-10] MEDS: amLODIPine BESYLATE 10 MG TABLET (FP) PO SCH (10:12)
[2018-10-10] MEDS: NICOTINE 21 MG/24 HOURS TOPICAL PATCH TD SCH (10:13)
[2018-10-10] MEDS: ASPIRIN 81 MG CHEWABLE TABLETS PO SCH (10:13)
[2018-10-10] MEDS: PRENATAL VITAMINS W/ FOLIC ACID TABLET (FP) PO SCH (10:13)
[2018-10-10] MEDS: LIDOCAINE 5% TOPICAL PATCH TP SCH (10:13)
[2018-10-10] MEDS: MELATONIN 5 MG TABLETS PO PRN (21:26)
[2018-10-10] MEDS: ATORVASTATIN CA 20 MG TABLET (FP) PO SCH (21:26)
[2018-10-10] MEDS: THIAMINE HCL 100 MG TABLET (FP) PO SCH (21:26)
[2018-10-11] MEDS ORDERED: METHADONE HCL 40 MG DISPERSABLE TABLET ONE (03:58)
[2018-10-11] MEDS ORDERED: METHADONE HCL 10 MG TABLET ONE (03:58)
[2018-10-11] MEDS: METHADONE 40 MG, METHADONE 30 MG PO SCH (06:15)
[2018-10-11] MEDS: GABAPENTIN 300 MG CAPSULE (FP) PO SCH ×3 (06:16→21:44)
[2018-10-11] MEDS: LIDOCAINE PATCH REMOVAL MC SCH ×2 (06:50→21:46)
[2018-10-11] MEDS: INSULIN (NOVOLOG) ASPART 100 UNITS/ML 10ML VIAL SQ SCH ×2 (07:25→11:43)
[2018-10-11] MEDS: amLODIPine BESYLATE 10 MG TABLET (FP) PO SCH (10:28)
[2018-10-11] MEDS: NICOTINE 21 MG/24 HOURS TOPICAL PATCH TD SCH (10:28)
[2018-10-11] MEDS: PRENATAL VITAMINS W/ FOLIC ACID TABLET (FP) PO SCH (10:28)
[2018-10-11] MEDS: ASPIRIN 81 MG CHEWABLE TABLETS PO SCH (10:28)
[2018-10-11] MEDS: LIDOCAINE 5% TOPICAL PATCH TP SCH (10:29)
[2018-10-11] MEDS ORDERED: SENNOSIDES 8.6MG TABLET (FP) PO PRN (10:33)
--- NOTE | 2018-10-11 11:49 | PN ---
[facility] Progress Note Note: Pt states he is having constipation- he usually takes Senna as an outpt to have regular BM's. He is getting prn meds here for constipation which he states are not working for him. Also would like to change his BGM to once a day. f/s have been in the 's. O: Vital Signs - 24 hr 10/11/18 10/11/18 10/11/18 00:30 03:30 07:01 Temperature 97.7 F Pulse Rate 68 Respiratory 18 18 18 Rate Blood Pressure 137/71 Laboratory Tests 10/04/18 10/05/18 10/05/18 16:47 06:34 16:56 POC Glucometer 215 135 119 10/06/18 10/06/18 10/07/18 06:30 17:00 06:36 POC Glucometer 126 180 105 10/07/18 10/07/18 10/08/18 12:05 16:36 06:19 POC Glucometer 84 94 110 10/08/18 10/09/18 10/09/18 12:05 06:19 12:05 POC Glucometer 129 78 79 10/09/18 10/10/18 10/10/18 16:39 06:02 16:49 POC Glucometer 83 87 87 10/11/18 06:20 POC Glucometer 88 alert and oriented ambulatory a/p: constipation- prn senna per pt preference BGM changed to once a day per pt request, changed novolog
[2018-10-11] MEDS: ATORVASTATIN CA 20 MG TABLET (FP) PO SCH (21:44)
[2018-10-11] MEDS: THIAMINE HCL 100 MG TABLET (FP) PO SCH (21:44)
[2018-10-11] MEDS: MELATONIN 5 MG TABLETS PO PRN (21:44)
[2018-10-11] MEDS: SENNOSIDES 8.6MG TABLET (FP) PO PRN (21:45)
[2018-10-12] MEDS ORDERED: METHADONE HCL 10 MG TABLET ONE (05:53)
[2018-10-12] MEDS ORDERED: METHADONE HCL 40 MG DISPERSABLE TABLET ONE (05:53)
[2018-10-12] MEDS: METHADONE 40 MG, METHADONE 30 MG PO SCH (06:10)
[2018-10-12] MEDS: GABAPENTIN 300 MG CAPSULE (FP) PO SCH ×3 (06:11→21:42)
[2018-10-12] MEDS: amLODIPine BESYLATE 10 MG TABLET (FP) PO SCH (10:19)
[2018-10-12] MEDS: ASPIRIN 81 MG CHEWABLE TABLETS PO SCH (10:19)
[2018-10-12] MEDS: NICOTINE 21 MG/24 HOURS TOPICAL PATCH TD SCH (10:20)
[2018-10-12] MEDS: LIDOCAINE 5% TOPICAL PATCH TP SCH (10:20)
[2018-10-12] MEDS: PRENATAL VITAMINS W/ FOLIC ACID TABLET (FP) PO SCH (10:21)
[2018-10-12] MEDS: MELATONIN 5 MG TABLETS PO PRN (21:42)
[2018-10-12] MEDS: ATORVASTATIN CA 20 MG TABLET (FP) PO SCH (21:42)
[2018-10-12] MEDS: LIDOCAINE PATCH REMOVAL MC SCH (21:43)
[2018-10-12] MEDS: THIAMINE HCL 100 MG TABLET (FP) PO SCH (21:43)
[2018-10-12] MEDS: SENNOSIDES 8.6MG TABLET (FP) PO PRN (21:44)
[2018-10-13] MEDS ORDERED: METHADONE HCL 10 MG TABLET ONE (06:20)
[2018-10-13] MEDS ORDERED: METHADONE HCL 40 MG DISPERSABLE TABLET ONE (06:20)
[2018-10-13] MEDS: METHADONE 40 MG, METHADONE 30 MG PO SCH (06:21)
[2018-10-13] MEDS: GABAPENTIN 300 MG CAPSULE (FP) PO SCH ×3 (06:22→21:32)
[2018-10-13] MEDS: NICOTINE 21 MG/24 HOURS TOPICAL PATCH TD SCH (10:27)
[2018-10-13] MEDS: LIDOCAINE 5% TOPICAL PATCH TP SCH (10:27)
[2018-10-13] MEDS: ASPIRIN 81 MG CHEWABLE TABLETS PO SCH (10:27)
[2018-10-13] MEDS: PRENATAL VITAMINS W/ FOLIC ACID TABLET (FP) PO SCH (10:28)
[2018-10-13] MEDS: amLODIPine BESYLATE 10 MG TABLET (FP) PO SCH (10:29)
[2018-10-13] MEDS: MELATONIN 5 MG TABLETS PO PRN (21:32)
[2018-10-13] MEDS: ATORVASTATIN CA 20 MG TABLET (FP) PO SCH (21:32)
[2018-10-13] MEDS: SENNOSIDES 8.6MG TABLET (FP) PO PRN (21:32)
[2018-10-13] MEDS: THIAMINE HCL 100 MG TABLET (FP) PO SCH (21:32)
[2018-10-13] MEDS: LIDOCAINE PATCH REMOVAL MC SCH (21:33)
[2018-10-14] MEDS ORDERED: METHADONE HCL 10 MG TABLET ONE (06:02)
[2018-10-14] MEDS ORDERED: METHADONE HCL 40 MG DISPERSABLE TABLET ONE (06:02)
[2018-10-14] MEDS: METHADONE 40 MG, METHADONE 30 MG PO SCH (06:11)
[2018-10-14] MEDS: GABAPENTIN 300 MG CAPSULE (FP) PO SCH ×3 (06:12→21:34)
--- NOTE | 2018-10-14 10:20 | DS ---
[facility] Rehab Discharge Summary - [facility] Rehab Discharge Summary Admission Date: 10/04/18 Discharge Date: 10/14/18 - History Present History: Alcohol dependence, Cocaine dependence, MMTP, Opioid dependence Additional Comments: Pt is a 73 y/o male with a hx of heroin,alcohol and cocaine dependence and on [facility] Plan-MMTP admitted to rehab on 10/04/18 after detox treatment on . Pt completed rehab and is discharged today to follow up with aftercare referral as scheduled. Pt will follow up with Mental Health/primary care/[employer] at [facility] and states he has all his medications at home. Pertinent Past History: PMHx: HTN DM Hyperlipidemia Chronic Bilateral Knee Pain S/P Right knee sx - Discharge Physical Exam Vital Signs: General:Alert o x 3, NAD,denies s/h/i Heent:Normocephalic, Fern,Eomi, Hearing grossly normal Cardiac:s1 s2, rrr Lungs:cta,kathryn., No sob Abdomen:soft,+bs,nt.nd Extremities/Skin:No edema,cyanosis,open wounds; FROM except slight limited active ROM to left knee; old surgical scar on right knee. Vital Signs Temperature 98.3 F 10/14/18 07:07 Pulse Rate 74 10/14/18 07:07 Respiratory Rate 18 10/14/18 07:07 Blood Pressure 148/75 10/14/18 07:07 O2 Sat by Pulse Oximetry (%) Pertinent Admission Physical Exam Findings: Laboratory Tests 10/04/18 10/05/18 10/05/18 16:47 06:34 16:56 POC Glucometer 215 135 119 10/06/18 10/06/18 10/07/18 06:30 17:00 06:36 POC Glucometer 126 180 105 10/07/18 10/07/18 10/08/18 12:05 16:36 06:19 POC Glucometer 84 94 110 10/08/18 10/09/18 10/09/18 12:05 06:19 12:05 POC Glucometer 129 78 79 10/09/18 10/10/18 10/10/18 16:39 06:02 16:49 POC Glucometer 83 87 87 10/11/18 10/12/18 10/13/18 06:20 06:09 06:17 POC Glucometer 88 108 100 10/14/18 06:08 POC Glucometer 78 Admission QTF(+) on 09/29/18: positive CXR on 09/29/18: No acute chest pathology. Other admitting lab results - grossly wnl - Treatment Discharge Condition: Discharge condition good Hospital Course: Rehabilitated safely, Tolerated treatment well, Referral accepted back to [facility] - Medication Discharge Medications: Ambulatory Orders Amlodipine Besylate [Norvasc -] 10 mg PO DAILY 09/29/18 Aspirin 81 mg PO DAILY 09/29/18 Gabapentin [Neurontin -] 300 mg PO Q8H 09/29/18 Simvastatin [Zocor -] 20 mg PO HS 09/29/18 Sitagliptin Phosphate [Januvia] 25 mg PO DAILY 09/29/18 Methadone [Dolophine -] 70 mg PO DAILY 10/04/18 Sennosides [Senna] 17.2 mg PO DAILY 10/04/18 - Medication-Assisted Treatment (MAT) Medication-Assisted Treatment (MAT): No - Discharge Instructions Diet, activity, other medical instructions: Diet:Low salt diet, no concentrated sweets diet, Low fat diet Activity: OOB, As Tolerated Other medical instructions:Follow up with primary care and at: [facility] Location: [address] [place] [address] Date:10/21/18 Time:10:00 A.M CD Aftercare at: [facility] [address] [place] [address] Date:10/15/18 Time :Regular clinic dosing hrs - Diagnosis (1) Encounter for long-term methadone use for opiate dependence Current Visit: Yes Status: Chronic (2) Hyperlipidemia Current Visit: Yes Status: Chronic Qualifiers: Hyperlipidemia type: unspecified Qualified Code(s): E78.5 - Hyperlipidemia , unspecified (3) Alcohol dependence Current Visit: Yes Status: Chronic Qualifiers: Substance use status: uncomplicated Qualified Code(s): F10.20 - Alcohol dependence, uncomplicated (4) Cocaine abuse Current Visit: Yes Status: Chronic (5) Diabetes Current Visit: Yes Status: Chronic Qualifiers: Diabetes mellitus type: type 2 Diabetes mellitus peanut salter insulin use: unspecified peanut salter insulin use status Diabetes mellitus complication status : without complication Qualified Code(s): E11.9 - Type 2 diabetes mellitus without complications (6) Hypertension Current Visit: Yes Status: Chronic Qualifiers: Hypertension type: essential hypertension Qualified Code(s): I10 - Essential (primary) hypertension - Follow-up Referral Minutes to complete discharge: 30 - AMA Did Patient Leave Against Medical Advice: No Additional Comments: Pt has been reminded to follow up with his MMTP to continue his maintenance treatment [facility] at [facility] at location indicated above.
[2018-10-14] MEDS: LIDOCAINE 5% TOPICAL PATCH TP SCH (10:46)
[2018-10-14] MEDS: ASPIRIN 81 MG CHEWABLE TABLETS PO SCH (10:46)
[2018-10-14] MEDS: amLODIPine BESYLATE 10 MG TABLET (FP) PO SCH (10:46)
[2018-10-14] MEDS: PRENATAL VITAMINS W/ FOLIC ACID TABLET (FP) PO SCH (10:46)
[2018-10-14] MEDS: NICOTINE 21 MG/24 HOURS TOPICAL PATCH TD SCH (10:47)
--- NOTE | 2018-10-14 15:41 | PN ---
[facility] Progress Note Note: Mr. Hathaway will not be discharging today as scheduled due to aftercare set up issues for the weekend and holiday hours.
[2018-10-14] MEDS: THIAMINE HCL 100 MG TABLET (FP) PO SCH (21:34)
[2018-10-14] MEDS: MELATONIN 5 MG TABLETS PO PRN (21:34)
[2018-10-14] MEDS: SENNOSIDES 8.6MG TABLET (FP) PO PRN (21:34)
[2018-10-14] MEDS: ATORVASTATIN CA 20 MG TABLET (FP) PO SCH (21:34)
[2018-10-14] MEDS: LIDOCAINE PATCH REMOVAL MC SCH (21:35)
[2018-10-15] MEDS ORDERED: METHADONE HCL 10 MG TABLET ONE (04:27)
[2018-10-15] MEDS ORDERED: METHADONE HCL 40 MG DISPERSABLE TABLET ONE (04:27)
[2018-10-15] MEDS: GABAPENTIN 300 MG CAPSULE (FP) PO SCH ×3 (06:09→21:30)
[2018-10-15] MEDS: METHADONE 40 MG, METHADONE 30 MG PO SCH (06:10)
[2018-10-15] MEDS: LIDOCAINE 5% TOPICAL PATCH TP SCH (10:09)
[2018-10-15] MEDS: amLODIPine BESYLATE 10 MG TABLET (FP) PO SCH (10:10)
[2018-10-15] MEDS: ASPIRIN 81 MG CHEWABLE TABLETS PO SCH (10:10)
[2018-10-15] MEDS: NICOTINE 21 MG/24 HOURS TOPICAL PATCH TD SCH (10:10)
[2018-10-15] MEDS: PRENATAL VITAMINS W/ FOLIC ACID TABLET (FP) PO SCH (10:10)
[2018-10-15] MEDS: MELATONIN 5 MG TABLETS PO PRN (21:30)
[2018-10-15] MEDS: THIAMINE HCL 100 MG TABLET (FP) PO SCH (21:30)
[2018-10-15] MEDS: LIDOCAINE PATCH REMOVAL MC SCH (21:30)
[2018-10-15] MEDS: ATORVASTATIN CA 20 MG TABLET (FP) PO SCH (21:30)
[2018-10-15] MEDS: SENNOSIDES 8.6MG TABLET (FP) PO PRN (21:31)
[2018-10-16] MEDS ORDERED: METHADONE HCL 40 MG DISPERSABLE TABLET ONE (03:56)
[2018-10-16] MEDS ORDERED: METHADONE HCL 10 MG TABLET ONE (03:56)
[2018-10-16] MEDS: GABAPENTIN 300 MG CAPSULE (FP) PO SCH ×3 (06:06→21:35)
[2018-10-16] MEDS: METHADONE 40 MG, METHADONE 30 MG PO SCH (06:06)
[2018-10-16] MEDS: PRENATAL VITAMINS W/ FOLIC ACID TABLET (FP) PO SCH (10:19)
[2018-10-16] MEDS: ASPIRIN 81 MG CHEWABLE TABLETS PO SCH (10:19)
[2018-10-16] MEDS: LIDOCAINE 5% TOPICAL PATCH TP SCH (10:20)
[2018-10-16] MEDS: amLODIPine BESYLATE 10 MG TABLET (FP) PO SCH (10:20)
[2018-10-16] MEDS: NICOTINE 21 MG/24 HOURS TOPICAL PATCH TD SCH (10:20)
[2018-10-16] MEDS: LIDOCAINE PATCH REMOVAL MC SCH (21:35)
[2018-10-16] MEDS: ATORVASTATIN CA 20 MG TABLET (FP) PO SCH (21:35)
[2018-10-16] MEDS: THIAMINE HCL 100 MG TABLET (FP) PO SCH (21:35)
[2018-10-16] MEDS: MELATONIN 5 MG TABLETS PO PRN (21:35)
[2018-10-16] MEDS: SENNOSIDES 8.6MG TABLET (FP) PO PRN (21:35)
[2018-10-17] MEDS ORDERED: METHADONE HCL 40 MG DISPERSABLE TABLET ONE (05:58)
[2018-10-17] MEDS ORDERED: METHADONE HCL 10 MG TABLET ONE (05:58)
[2018-10-17] MEDS: METHADONE 40 MG, METHADONE 30 MG PO SCH (06:35)
[2018-10-17] MEDS: GABAPENTIN 300 MG CAPSULE (FP) PO SCH ×3 (06:36→21:36)
[2018-10-17] MEDS: NICOTINE 21 MG/24 HOURS TOPICAL PATCH TD SCH (10:33)
[2018-10-17] MEDS: LIDOCAINE 5% TOPICAL PATCH TP SCH (10:33)
[2018-10-17] MEDS: ASPIRIN 81 MG CHEWABLE TABLETS PO SCH (10:34)
[2018-10-17] MEDS: PRENATAL VITAMINS W/ FOLIC ACID TABLET (FP) PO SCH (10:34)
[2018-10-17] MEDS: amLODIPine BESYLATE 10 MG TABLET (FP) PO SCH (10:34)
[2018-10-17 12:35] VITALS: BP 125/71
[2018-10-17] MEDS: ATORVASTATIN CA 20 MG TABLET (FP) PO SCH (21:36)
[2018-10-17] MEDS: THIAMINE HCL 100 MG TABLET (FP) PO SCH (21:36)
[2018-10-17] MEDS: MELATONIN 5 MG TABLETS PO PRN (21:36)
[2018-10-17] MEDS: LIDOCAINE PATCH REMOVAL MC SCH (21:37)
[2018-10-17] MEDS: SENNOSIDES 8.6MG TABLET (FP) PO PRN (21:38)
[2018-10-18] MEDS: GABAPENTIN 300 MG CAPSULE (FP) PO SCH (06:01)
[2018-10-18] MEDS ORDERED: METHADONE HCL 40 MG DISPERSABLE TABLET ONE (06:04)
[2018-10-18] MEDS ORDERED: METHADONE HCL 10 MG TABLET ONE (06:04)
[2018-10-18] MEDS ORDERED: METHADONE 40 MG, METHADONE 30 MG PO SCH (06:15)
[2018-10-18] MEDS ORDERED: METHADONE HCL 10 MG TABLET PO SCH (06:15)
[2018-10-18 07:39] VITALS: PULSE 71; TEMP 99.2
[2018-10-18] MEDS: ASPIRIN 81 MG CHEWABLE TABLETS PO SCH (10:13)
[2018-10-18] MEDS: amLODIPine BESYLATE 10 MG TABLET (FP) PO SCH (10:13)
[2018-10-18] MEDS: PRENATAL VITAMINS W/ FOLIC ACID TABLET (FP) PO SCH (10:13)
[2018-10-18] MEDS: NICOTINE 21 MG/24 HOURS TOPICAL PATCH TD SCH (10:14)
[2018-10-18] MEDS: LIDOCAINE 5% TOPICAL PATCH TP SCH (10:15)
--- NOTE | 2018-10-18 13:35 | PN ---
[facility] Progress Note Note: Pt was discharged today as scheduled to follow up with aftercare referrals as earlier planned. Alert o x 3. Pt reports positive outlook towards aftercare after discharge today. Stable and Denies s/h/i. Vital Signs - 24 hr 10/18/18 10/18/18 10/18/18 00:30 03:30 07:37 Temperature 99.2 F Pulse Rate 71 Respiratory 18 20 18 Rate Blood Pressure 125/71
== END 2018-10-18 10:30 | disposition home or self-care (01) | DRG 895 ==
LOC: YASAS 13:07 → Y5N 13:08
PROVIDERS: ADMIT Neuromusculoskeletal Medicine & OMM; ATTEND Neuromusculoskeletal Medicine & OMM
PROC: HZ42ZZZ Group Counseling for Substance Abuse Treatment, Cognitive-Behavioral (ICD-10-PCS; principal; 2018-10-04)
DX: F10.20 Alcohol dependence, uncomplicated (principal); F11.20 Opioid dependence, uncomplicated; F14.10 Cocaine abuse, uncomplicated; F17.210 Nicotine dependence, cigarettes, uncomplicated; I10 Essential (primary) hypertension; E11.9 Type 2 diabetes mellitus without complications; E78.5 Hyperlipidemia, unspecified; K59.00 Constipation, unspecified; R19.7 Diarrhea, unspecified; R10.9 Unspecified abdominal pain
CPT/HCPCS: 82962

== ENCOUNTER 2024-06-06 10:50 | Inpatient (IN) | payer OTHER ==
[2024-06-06 11:10] VITALS: BMI 20.6
[2024-06-06] MEDS ORDERED: MAGNESIUM HYDROX 2400MG/30ML ORAL SUSPENSION 30 ML CUP PO PRN (12:04)
[2024-06-06] MEDS ORDERED: POLYETHYLENE GLYCOL (HEALTHYLAX) 3350 17 GM PACKET PO PRN (12:04)
[2024-06-06] MEDS ORDERED: BENZOCAINE/MENTHOL (CHLORASEPTIC ) LOZENGE MM PRN (12:04)
[2024-06-06] MEDS ORDERED: IBUPROFEN 600 MG TABLET (FP) PO PRN (12:04)
[2024-06-06] MEDS ORDERED: guaiFENesin 600 MG TABLET.ER (FP) PO PRN (12:04)
[2024-06-06] MEDS ORDERED: LOPERAMIDE HCL 2 MG CAPSULE PO PRN (12:04)
[2024-06-06] MEDS ORDERED: MAG HYDROX/AL HYDROX/SIMETH 30 ML UNIT-DOSE CUP PO PRN (12:04)
[2024-06-06] MEDS ORDERED: BENZONATATE 200 MG CAPSULE PO PRN (12:04)
[2024-06-06] MEDS ORDERED: IBUPROFEN 400 MG TABLET (FP) PO PRN (12:04)
[2024-06-06] MEDS ORDERED: NALOXONE (NARCAN) HCL 4 MG/0.1 ML SPRAY NS PRN (12:04)
[2024-06-06] MEDS ORDERED: ACETAMINOPHEN 325 MG TABLET (FP) PO PRN (12:04)
[2024-06-06] MEDS ORDERED: SENNOSIDES 8.6MG TABLET (FP) PO PRN (15:37)
[2024-06-06] MEDS ORDERED: TUBERCULIN PPD 5 TU/0.1ML VIAL ID ONE (17:30)
[2024-06-06] MEDS: CLOPIDOGREL BISULFATE 75 MG TABLET (FP) PO SCH (17:33)
[2024-06-06] MEDS: ATORVASTATIN CA 10 MG TABLET (FP) PO SCH (21:52)
[2024-06-06] MEDS: MELATONIN 5 MG TABLETS PO SCH (21:52)
[2024-06-06] MEDS: THIAMINE 100 MG TABLET PO SCH (21:53)
[2024-06-07] MEDS: EMPAGLIFLOZIN (JARDIANCE) 10 MG TABLET PO SCH (06:55)
[2024-06-07] MEDS: TAMSULOSIN HCL 0.4 MG CAP PO SCH (09:28)
[2024-06-07 11:29] LABS: PH,URINE 6.5 (5.0-8.0); URINE APPEARANCE CLEAR; URINE BILIRUBIN NEGATIVE (NEGATIVE); URINE COLOR YELLOW; URINE GLUCOSE (UA) 3+ (NEGATIVE); URINE KETONE NEGATIVE (NEGATIVE); URINE LEUK ESTERASE NEGATIVE (NEGATIVE); URINE NITRITE NEGATIVE (NEGATIVE); URINE PROTEIN NEGATIVE (NEGATIVE)
[2024-06-07 11:31] LABS: HEMOGLOBIN 11.9 g/dL (13.7-17.5); MCHC 33.1 g/dl (32.3-36.5); MEAN CELL VOLUME 90.7 fl (79.0-92.2); MEAN PLT VOLUME 10.1 fl (9.4-12.4); PLATELET COUNT 192 x10^3/uL (163-337); RDW 15.1 % (12.2-16.6)
[2024-06-07 11:32] LABS: POTASSIUM 4.2 mmol/L (3.5-5.1)
[2024-06-07 11:35] VITALS: BP 140/76; PULSE 70; RESP 16; TEMP 97.6
[2024-06-07 11:35] LABS: ALBUMIN 2.5 g/dl (3.4-5.0); CALCIUM 8.7 mg/dL (8.5-10.1)
[2024-06-07 11:36] LABS: BLOOD UREA NITROGEN 20.8 mg/dL (7-18)
[2024-06-07 11:39] LABS: CREATININE 1.1 mg/dL (0.55-1.3)
[2024-06-07 11:40] LABS: BILIRUBIN,TOTAL 0.3 mg/dL (0.2-1); TOT PROT 6.6 g/dl (6.4-8.2)
[2024-06-07] MEDS: ASPIRIN 81 MG CHEWABLE TABLETS PO SCH (11:54)
[2024-06-07 12:03] LABS: SYPHILIS W/ RPR CONF NON-REACTIVE (NONREACTIVE)
[2024-06-07] MEDS: PRENATAL VITAMINS W/ FOLIC ACID TABLET (FP) PO SCH (12:04)
[2024-06-07] MEDS: LOSARTAN POTASSIUM 25 MG TABLET PO SCH (12:04)
[2024-06-07] MEDS: BUPRENORPHINE/NALOXONE 8 MG/2 MG FILM PACKET SL ONE (12:12)
[2024-06-07 12:32] LABS: HCV DIAGNOSTIC IN-HOUSE W/RFLX NON-REACTIVE (NONREACTIVE)
[2024-06-07] MEDS: ACETAMINOPHEN 500 MG TABLET (FP) PO PRN (13:13)
[2024-06-07] MEDS: BUPRENORPHINE/NALOXONE 8 MG/2 MG FILM PACKET SL SCH (13:17)
[2024-06-08] MEDS ORDERED: amLODIPine BESYLATE 10 MG TABLET (FP) PO SCH (10:00)
== END 2024-06-07 16:48 | disposition left against medical advice (07) | DRG 894 ==
LOC: YASAS 10:50 → Y3NR 13:23 → Y5N 13:24
PROVIDERS: ADMIT Psychiatry & Neurology Pain Medicine; ATTEND Psychiatry & Neurology Pain Medicine
PROC: HZ42ZZZ Group Counseling for Substance Abuse Treatment, Cognitive-Behavioral (ICD-10-PCS; principal; 2024-06-06)
DX: F11.20 Opioid dependence, uncomplicated (principal); F14.20 Cocaine dependence, uncomplicated; F10.20 Alcohol dependence, uncomplicated; F17.210 Nicotine dependence, cigarettes, uncomplicated; I25.10 Atherosclerotic heart disease of native coronary artery without angina pectoris; I10 Essential (primary) hypertension; E11.9 Type 2 diabetes mellitus without complications; Z79.84 Long term (current) use of oral hypoglycemic drugs; H91.90 Unspecified hearing loss, unspecified ear; R76.12 Nonspecific reaction to cell mediated immunity measurement of gamma interferon antigen response without active tuberculosis
CPT/HCPCS: 36415; 80053; 80305; 80307; 81003; 82962; 85027; 86780; 86803; 93005; 93010